=== PATIENT | male | born 1975 | race Caucasian/White ===

== ENCOUNTER → 2021-09-12 | Day surgery (SDC) | payer OTHER ==
[~2021-09-12] MED LIST: PROTONIX 40 MG40 M1 PO
== END | disposition home or self-care (01) ==
LOC: OR 08:12
DX: Z12.11 Encounter for screening for malignant neoplasm of colon (principal); K29.50 Unspecified chronic gastritis without bleeding; K21.00 Gastro-esophageal reflux disease with esophagitis, without bleeding; K22.10 Ulcer of esophagus without bleeding; K64.0 First degree hemorrhoids; E66.3 Overweight; Z68.29 Body mass index [BMI] 29.0-29.9, adult; Z88.6 Allergy status to analgesic agent; Z88.0 Allergy status to penicillin; Z88.8 Allergy status to other drugs, medicaments and biological substances; Z80.0 Family history of malignant neoplasm of digestive organs; Z87.891 Personal history of nicotine dependence
CPT/HCPCS: 43239; G0121; J2250; J2704; J7040